=== PATIENT | male | born 1990 | race Caucasian/White ===

== ENCOUNTER 2017-02-28 13:25 | Emergency (ER) | payer OTHER ==
[~2017-02-28] VITALS: Ht 170.2 cm; Wt 103.6 kg
[2017-02-28 13:33] VITALS: TEMP 36.9; Ht 170.2 cm; Wt 103.6 kg
[2017-02-28] MEDS ORDERED: SODIUM CHLORIDE 0.9% 1000ML 1,000 ML IV STA (13:44)
[2017-02-28] MEDS ORDERED: ONDANSETRON INJ 2 MG/ML 2 ML VIAL IV STA (13:44)
[2017-02-28 14:22] LABS: BASO % 0.5 %; BASO ABS # 0.06 K/uL (0-0.2); COMPLETE YES; EOS % 4.9 %; HEMATOCRIT 46.2 % (42-52); IG% 0.2 %; LYMPH % 33.9 %; LYMPH ABS # 3.74 K/uL (1.2-3.4); MEAN CELL VOLUME 86.5 fL (80-100); MEAN CORPUSCULAR HEMOGLOBIN 29.6 pg (25-34); MEAN CORPUSCULAR HGB CONC 34.2 g/dl (32-36); NEUT % 51.5 %; PLATELET COUNT 210 K/uL (130-400); RED BLOOD COUNT 5.34 M/uL (4.7-6.1); WHITE BLOOD COUNT 11.02 K/uL (4.8-10.8)
[2017-02-28 14:41] LABS: CALCIUM 8.3 mg/dl (8.5-10.1); CREATININE 0.84 mg/dl (0.60-1.40); POTASSIUM 3.5 mmol/L (3.5-5.1)
[2017-02-28 14:46] LABS: BUN/CREATININE RATIO 13.5 (10-20)
[2017-02-28 15:38] LABS: URINE APPEARANCE CLEAR (CLEAR); URINE COLOR DK YELLOW; URINE EPITHELIAL CELL AUTO 0-5 /lpf (0-5); URINE NITRITE NEG (NEG); URINE SPECIFIC GRAVITY 1.033 (1.000-1.030); UROBILINOGEN NEG (NEG); ZZUR CULT IF INDIC CLEAN CATCH NO
[2017-02-28 15:53] LABS: MANUAL MICROSCOPIC REQUIRED? NO; REVIEW REQ? NO; URINE BILIRUBIN NEG (NEG)
--- NOTE | 2017-02-28 16:14 | EMERGENCY ROOM VISIT NOTE ---
History Report prepared by Walter: Que Hull Under the Supervision of: Dr. Yoni Taylor D.O. First contact with patient: 13:38 Chief Complaint: FEVER Stated Complaint: DIARRHEA, NAUSEA, FEVER History of Present Illness The patient is a 26 year old male who presents to the Emergency Room with complaints of persistent diarrhea beginning a week ago. He also complains of vomiting and fever. His vomiting began three days ago. The patient noticed his fever yesterday. He estimates that he has had 10-15 episodes of diarrhea since last night. He took some Zofran that he had left over which has helped with his nausea. The patient's most recent episode of vomiting was one hour ago. He denies recent antibiotic use. He has a history of C Diff. The patient notes that he defecated "what looked like a worm" a little over a week ago. Source of History: patient Onset: One week ago Quality: other (diarrhea) Timing: other (persistent) Associated Symptoms: + fevers, + vomiting Review of Systems See HPI for pertinent positives & negatives. A total of 10 systems reviewed and were otherwise negative. Past Medical & Surgical Medical Problems: (1) C. difficile colitis (2) Hand, foot and mouth disease (3) No Known Active Medical Problems Surgical Problems: (1) H/O wisdom tooth extraction Family History No pertinent family history stated. Social History Smoking Status: Current Every Day Smoker Housing Status: lives with family Current/Historical Medications No Active Prescriptions or Reported Meds Allergies Coded Allergies: No Known Allergies (Unverified , 02/28/17) Physical Exam Vital Signs Date Time Temp Pulse Resp B/P (MAP) Pulse Ox O2 Delivery O2 Flow Rate FiO2 02/28/17 15:22 61 18 93/58 95 Room Air 02/28/17 13:33 36.9 66 20 134/87 95 Room Air Physical Exam CONSTITUTIONAL/VITAL SIGNS: Reviewed / noted above. GENERAL: Non-toxic in appearance. INTEGUMENTARY: Warm, dry, and [place]. HEAD: Normocephalic. EYES: without scleral icterus or trauma. ENT/OROPHARYNX: clear and moist. LYMPHADENOPATHY/NECK: Is supple without lymphadenopathy or meningismus. RESPIRATORY: Lungs clear and equal. CARDIOVASCULAR: Regular rate and rhythm. GI/ABDOMEN: Soft and nontender. No organomegaly or pulsatile mass. No rebound or guarding. Normal bowel sounds. EXTREMITIES: Warm and well perfused. BACK: No CVA tenderness. NEUROLOGICAL: Intact without focal deficits. PSYCHIATRIC: normal affect. MUSCULOSKELETAL: Normally developed with good muscle tone. Medical Decision & Procedures Laboratory Results 02/28/17 14:10 Red Blood Count 5.34, Mean Corpuscular Volume 86.5, Mean Corpuscular Hemoglobin 29.6, Mean Corpuscular Hemoglobin Concent 34.2, Mean Platelet Volume 11.0, Neutrophils (%) (Auto) 51.5, Lymphocytes (%) (Auto) 33.9, Monocytes (%) (Auto) 9.0, Eosinophils (%) (Auto) 4.9, Basophils (%) (Auto) 0.5, Neutrophils # (Auto) 5.67, Lymphocytes # (Auto) 3.74, Monocytes # (Auto) 0.99, Eosinophils # (Auto) 0.54, Basophils # (Auto) 0.06 02/28/17 14:10 Test 02/28/17 14:10 02/28/17 15:00 White Blood Count 11.02 K/uL (4.8-10.8) Red Blood Count 5.34 M/uL (4.7-6.1) Hemoglobin 15.8 g/dL (14.0-18.0) Hematocrit 46.2 % (42-52) Mean Corpuscular Volume 86.5 fL (80-100) Mean Corpuscular Hemoglobin 29.6 pg (25-34) Mean Corpuscular Hemoglobin Concent 34.2 g/dl (32-36) Platelet Count 210 K/uL (130-400) Mean Platelet Volume 11.0 fL (7.4-10.4) Neutrophils (%) (Auto) 51.5 % Lymphocytes (%) (Auto) 33.9 % Monocytes (%) (Auto) 9.0 % Eosinophils (%) (Auto) 4.9 % Basophils (%) (Auto) 0.5 % Neutrophils # (Auto) 5.67 K/uL (1.4-6.5) Lymphocytes # (Auto) 3.74 K/uL (1.2-3.4) Monocytes # (Auto) 0.99 K/uL (0.11-0.59) Eosinophils # (Auto) 0.54 K/uL (0-0.5) Basophils # (Auto) 0.06 K/uL (0-0.2) RDW Standard Deviation 43.8 fL (36.4-46.3) RDW Coefficient of Variation 14.1 % (11.5-14.5) Immature Granulocyte % (Auto) 0.2 % Immature Granulocyte # (Auto) 0.02 K/uL (0.00-0.02) Anion Gap 6.0 mmol/L (3-11) Est Creatinine Clear Calc Drug Dose 150.2 ml/min Estimated GFR () 138.1 Estimated GFR (Non- 119.2 BUN/Creatinine Ratio 13.5 (10-20) Calcium Level 8.3 mg/dl (8.5-10.1) Total Bilirubin 0.9 mg/dl (0.2-1) Direct Bilirubin 0.2 mg/dl (0-0.2) Aspartate Amino Transf (AST/SGOT) 18 U/L (15-37) Alanine Aminotransferase (ALT/SGPT) 31 U/L (12-78) Alkaline Phosphatase 72 U/L (45-117) Total Protein 7.3 gm/dl (6.4-8.2) Albumin 3.6 gm/dl (3.4-5.0) Lipase 56 U/L (73-393) Urine Color DK YELLOW Urine Appearance CLEAR (CLEAR) Urine pH 5.0 (4.5-7.5) Urine Specific [place] 1.033 (1.000-1.030) Urine Protein NEG (NEG) Urine Glucose (UA) NEG (NEG) Urine Ketones TRACE (NEG) Urine Occult Blood NEG (NEG) Urine Nitrite NEG (NEG) Urine Bilirubin NEG (NEG) Urine Urobilinogen NEG (NEG) Urine Leukocyte Esterase NEG (NEG) Urine WBC (Auto) 1-5 /hpf (0-5) Urine RBC (Auto) 0-4 /hpf (0-4) Urine Hyaline Casts (Auto) 1-5 /lpf (0-5) Urine Epithelial Cells (Auto) 0-5 /lpf (0-5) Urine Bacteria (Auto) NEG (NEG) Laboratory results as stated above per my review. Medications Administered Medications (Trade) Dose Ordered Sig/Jay Route Start Time Stop Time Status Last Admin Dose Admin Sodium Chloride 1,000 ml @ 999 mls/hr Q1H1M STAT IV 02/28/17 13:44 02/28/17 14:44 DC 02/28/17 13:44 999 MLS/HR Ondansetron HCl (Zofran Inj) 4 mg NOW STAT IV 02/28/17 13:44 02/28/17 13:45 DC 02/28/17 13:44 4 MG ED Course 1341: Previous medical records were reviewed. The patient was evaluated in room B6. A complete history and physical examination was performed. 1344: Ordered Zofran Inj 4 mg IV, Sodium Chloride 1000 ml @ 999 mls/hr IV. Medical Decision Differential diagnosis: Etiologies such as gastroenteritis, food borne illness, infections, appendicitis , diverticulitis, inflammatory bowel disease, obstruction, GI bleed, biliary pathology, as well as others were entertained. This is a 18-year-old male who presents to the ED with a chief complaint of diarrhea for the past week. He also reports an episode of vomiting yesterday and today. He had a fever last night. The patient has a history of C. difficile. He was seen by urgent care and sent here. He had some Zofran at home that he used it seemed to help his nausea. His vital signs are normal. His physical exam was unremarkable. His CBC is unremarkable. Complete metabolic panel was normal. Urine reveals trace ketones. He was unable to produce a diarrhea sample. He was felt to be stable to be discharged. Medication Reconcilliation Current Medication List: was personally reviewed by me Blood Pressure Screening Patient's blood pressure: Elevated blood pressure Blood pressure disposition: Elevated BP felt to be situational Impression Primary Impression: Diarrhea Scribe Attestation The scribe's documentation has been prepared under my direction and personally reviewed by me in its entirety. I confirm that the note above accurately reflects all work, treatment, procedures, and medical decision making performed by me. Departure Information Dispostion Home / Self-Care Prescriptions No Active Prescriptions or Reported Meds Referrals No Doctor, Assigned (PCP) Patient Instructions My [facility] Additional Instructions Follow-up with your doctor for further care and evaluation in 1-2 days. Return to the emergency department for worsening or new symptoms or any concerns. You have been examined and treated today on an emergency basis only. This is not a substitute for, or an effort to provide, complete comprehensive medical care. It is impossible to recognize and treat all injuries or illnesses in a single emergency department visit. It is therefore important that you follow up closely with your doctor. Call as soon as possible for an appointment.
[2017-02-28 16:27] VITALS: BP 118/79; PULSE 64; O2SAT 97
== END 2017-02-28 16:30 | disposition home or self-care (01) ==
LOC: C.EDB 13:28
DX: R19.7 Diarrhea, unspecified (principal); R11.2 Nausea with vomiting, unspecified; F17.210 Nicotine dependence, cigarettes, uncomplicated